=== PATIENT | male | born 1985 | race Caucasian/White ===

== ENCOUNTER 2016-02-28 18:52 | Emergency (ER) | payer OTHER ==
[~2016-02-28] VITALS: Ht 177.8 cm; Wt 108.7 kg
[2016-02-28 18:56] VITALS: BP 149/97; PULSE 81; RESP 16; TEMP 98.6; O2SAT 100
--- NOTE | 2016-02-28 20:10 | PD ---
HPI Chief Complaint: Skin Problem Time Seen by Provider: 20:03 Travel History International Travel<30 days: No Contact w/Intl Traveler<30days: No Traveled to known affect area: No History of Present Illness HPI 30-year-old male presents to the emergency room for evaluation of lesion to the left lateral back that he first noticed today. Patient states he had prodromal pain, like muscle spasms, in the area yesterday. Has history of shingles 10 months ago and states the pain feels the same. Patient has had chickenpox as a child. Denies fever, chills, nausea, vomiting, and malaise. PFSH Social History Alcohol Use: No Tobacco Use: No Substance Use: No Allergies-Medications (Allergen,Severity, Reaction): Coded Allergies: Pertussis Vaccine (Verified Allergy, Severe, 02/28/16) Reported Meds & Prescriptions Reported Meds & Active Scripts Active No Active Prescriptions or Reported Medications Review of Systems Except as stated in HPI: all other systems reviewed are Neg Physical Exam Narrative GENERAL: Well-nourished, well-developed male in no acute distress. Afebrile. Ambulatory. SKIN: Warm and dry. There is a single 2 mm intact, nonerythematous vesicle on the left lateral back at the T8 distribution. HEAD: Normocephalic. EYES: No scleral icterus. No injection or drainage. NECK: Supple, trachea midline. No JVD or lymphadenopathy. Data Data Last Documented VS Vital Signs Date Time Temp Pulse Resp B/P Pulse Ox O2 Delivery O2 Flow Rate FiO2 02/28/16 18:56 98.6 81 16 149/97 100 MDM Medical Decision Making Medical Screen Exam Complete: Yes Emergency Medical Condition: Yes Medical Record Reviewed: Yes Differential Diagnosis Nevus versus shingles versus contact dermatitis Narrative Course 30-year-old male presents to the emergency room for evaluation of painful rash to the left lateral back that started via patient reports history of shingles 10 months ago and states this feels the same. Reports prodromal muscle spasm/ back pain in the T8 distribution that started yesterday. Denies systemic signs of infection. He is resting comfortably in bed. Physical exam reveals a single 2 mm intact, nonerythematous vesicle on the left lateral back at the T8 distribution. Very unimpressive for shingles. Patient has been under a lot of stress lately. Given history, he will be treated for shingles though it is a very mild case. Patient was told to follow up with a primary care physician or return to the emergency room for worsening symptoms. He understands and agrees to this plan. Diagnosis Primary Impression: History of shingles Referrals: Primary Care Physician Patient Instructions: General Instructions, Shingles (ED) Additional Instructions: Rest and drink plenty of fluids. Acyclovir as directed, until gone. Follow-up with a primary care physician. Return to the emergency room for worsening symptoms. Med/Other Pt SpecificInfo: Prescription(s) given Scripts No Active Prescriptions or Reported Meds Disposition: 01 DISCHARGE HOME Condition: Stable Charu Borjas Feb 28, 2016 20:10
[2016-02-28] MEDS ORDERED: ACYC800T PO (20:11)
== END 2016-02-28 20:17 | disposition home or self-care (01) ==
LOC: PHED 18:52 → PHEFT 20:17
DX: B02.9 Zoster without complications (principal)
CPT/HCPCS: 99283

== ENCOUNTER 2016-03-19 17:51 | Emergency (ER) | payer OTHER ==
[~2016-03-19] VITALS: Ht 175.3 cm; Wt 104.5 kg
[~2016-03-19 17:51] MED LIST: ACYC800T PO
[2016-03-19 17:57] VITALS: BP 165/106; PULSE 123; RESP 14; TEMP 98.1; O2SAT 98
--- NOTE | 2016-03-19 19:36 | PD ---
HPI Chief Complaint: Cold / Flu Symptoms Time Seen by Provider: 19:32 Travel History International Travel<30 days: No Contact w/Intl Traveler<30days: No Traveled to known affect area: No History of Present Illness HPI 30-year-old white male presents to emergency department with complaints of a concern for an esophageal foreign body versus stenosis. He states that in the last 2 weeks he has had noticeable decreased ability to swallow solid foods. He states now in the last 2 days he has not been able to eat any solid foods and has only been drinking liquids. He's been eating applesauce. He works here at the hospital. He spoke with Dr. Martinez to who agreed to see him in the office. She advised him to come to the ER if he had worsening symptoms. They had discussed getting an outpatient barium swallow followed by a upper endoscopy. He has had no fever chills. He does state that he has occasional coughing when eating or drinking. He denies any nausea or vomiting. No abdominal pain or diarrhea. No urinary symptoms. History of asthma as a child. None currently. 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 Nontoxic appearing. HEAD: Normocephalic, atraumatic. EYES: Pupils equal round and reactive. Extraocular motions intact. No scleral icterus. No injection or drainage. ENT: TMs clear without erythema. The external auditory canals clear. Nose: clear . Posterior pharynx is pink and moist. No tonsillar edema or exudate. A few cryptic tonsils. Uvula midline. Patient has a piece of tissue hanging from the uvula. Airway patent. NECK: Trachea midline.Supple, nontender, moves head freely. No central bony tenderness or spasm. CARDIOVASCULAR: Regular rate and rhythm without murmurs, gallops, or rubs. RESPIRATORY: Clear to auscultation. Breath sounds equal bilaterally. No wheezes , rales, or rhonchi. GASTROINTESTINAL: Abdomen soft, non-tender, nondistended. No hepato-splenomegaly , or palpable masses. No guarding. EXTREMITIES: No clubbing, cyanosis, or edema. No joint tenderness, effusion, or edema noted. BACK: Nontender without deformity or crepitance. No flank tenderness. Data Data Last Documented VS Vital Signs Date Time Temp Pulse Resp B/P Pulse Ox O2 Delivery O2 Flow Rate FiO2 03/19/16 17:57 98.1 123 14 165/106 98 Room Air Orders Barium Swallow (03/19/16 ) MDM Medical Decision Making Medical Screen Exam Complete: Yes Emergency Medical Condition: Yes Medical Record Reviewed: Yes Interpretation(s) Last 24 hours Impressions Barium Swallow X-Ray 03/19/16 0000 Signed Impressions: Service Date/Time: Saturday, March 19, 2016 19:20 - CONCLUSION: Normal examination. Jacob Valderrama MD Differential Diagnosis Differential diagnoses: Esophageal foreign body, esophageal stricture, nutcracker esophagus, motility problem of the esophagus, asthma, reflux Narrative Course Barium swallow is negative. Patient will be placed on a trial of Protonix 40 mg daily. He will continue to follow-up with Dr. Coello to have an upper endoscopy. This is esophageal foreign body sensation, dysphasia Diagnosis Primary Impression: esophageal foreign body sensation Additional Impression: Dysphagia Qualified Code: R13.12 - Oropharyngeal dysphagia Patient Instructions: General Instructions Additional Instructions: Rest. Protonix. Follow-up with GI doctor. Call in the morning for an appointment. Return to the ER if any problems. Med/Other Pt SpecificInfo: Prescription(s) given Scripts Pantoprazole (Protonix)40 Mg Tab40 Mg PO DAILY #30 TAB Ref 0 Prov:Daniela Adhikari DO 03/19/16 Disposition: 01 DISCHARGE HOME Condition: Stable Sammy Maher Mar 19, 2016 19:36
--- NOTE | 2016-03-19 20:12 | RADRPT ---
EXAM DATE/TIME: 03/19/2016 19:20 [facility] COMPARISON: No previous studies available for comparison. INDICATIONS : Dysphagia when swallowing solids, possible obstrction. FLUORO TIME: 0.9 minutes IMAGE COUNT: CONTRAST: 1. Liquid E-Z Paque Barium Sulfate (60% w/v, 41% w.w) MEDICAL HISTORY : asthma. SURGICAL HISTORY : None. ENCOUNTER: Initial ACUITY: 2 weeks PAIN SCORE: 2/10 LOCATION: esophagus. FINDINGS: Air-contrast views of the hypopharynx demonstrate a normal mucosal surface without filling defect. R apid sequence images of the hypopharynx and cervical esophagus during the passage of barium demonstra te a normal swallowing function. No evidence of aspiration. Multiphasic examination of the esophagu s demonstrates no esophageal fold thickening, ulceration, or filling defect. The gastroesophageal ju nction is normal in configuration without evidence of hiatal hernia. CONCLUSION: Normal examination. Jacob Valderrama MD on March 19, 2016 at 20:08 Board Certified Radiologist. This report was verified electronically.
[2016-03-19] MEDS ORDERED: PROT40TA PO (20:45)
== END 2016-03-19 21:04 | disposition home or self-care (01) ==
LOC: NEPB 17:51
DX: R13.12 Dysphagia, oropharyngeal phase (principal)
CPT/HCPCS: 74230; 99283

== ENCOUNTER 2016-03-22 09:02 | Day surgery (SDC) | payer OTHER ==
[~2016-03-22] VITALS: Ht 175.3 cm; Wt 105.0 kg
[~2016-03-22 09:02] MED LIST changes: -ACYC800T PO; +PROT40TA PO
[2016-03-22 09:04] VITALS: BP 144/78; PULSE 90; RESP 18; TEMP 97.8; O2SAT 97
--- NOTE | 2016-03-22 09:51 | PD ---
HPI Chief Complaint: Foreign Body Time Seen by Provider: 09:40 Travel History International Travel<30 days: No Contact w/Intl Traveler<30days: No Traveled to known affect area: No History of Present Illness HPI The patient is a 30-year-old male who presents emergency department for difficulty swallowing. The patient notes a 2 week history of difficulty and pain with swallowing with esophageal foreign body sensation. The patient had a barium swallow performed several days ago which was unremarkable. He was then seen in the elastic tape inserter office by Dr. Johnson's nurse practitioner, was scheduled for an endoscopy the following day. The endoscopy was scheduled for yesterday, however, the patient states he was unable to obtain a ride to have the endoscopy performed, therefore, it was not performed. The patient notes a 5 pound weight loss over the last 2 weeks, is able to swallow liquids with difficulty and with pain, but is unable to tolerate solid food. The symptoms are moderate, there are no alleviating factors, no known exacerbating factors. PFSH Past Medical History Immunizations Current: Yes Social History Alcohol Use: No Tobacco Use: No Substance Use: No Allergies-Medications (Allergen,Severity, Reaction): Coded Allergies: Pertussis Vaccine (Verified Allergy, Severe, 03/19/16) Reported Meds & Prescriptions Reported Meds & Active Scripts Active Protonix (Pantoprazole Sodium) 40 Mg Tab 40 Mg PO DAILY Review of Systems Except as stated in HPI: all other systems reviewed are Neg General / Constitutional: No: Fever Cardiovascular: No: Chest Pain or Discomfort Respiratory: No: Shortness of Breath Gastrointestinal: Positive: Dysphagia Neurologic: No: Weakness, Dizziness Physical Exam Narrative GENERAL: Awake, alert, nontoxic-appearing 30-year-old male who appears his stated age and is in no acute respiratory distress. SKIN: Warm and dry. HEAD: Atraumatic. Normocephalic. EYES: Pupils equal and round. No scleral icterus. No injection or drainage. ENT: No nasal bleeding or discharge. Long uvula. NECK: Trachea midline. No JVD. CARDIOVASCULAR: Regular rate and rhythm. No murmur appreciated. Heart rate in the 90s. RESPIRATORY: No accessory muscle use. Clear to auscultation. Breath sounds equal bilaterally. MUSCULOSKELETAL: No obvious deformities. No clubbing. No cyanosis. No edema. NEUROLOGICAL: Awake and alert. No obvious cranial nerve deficits. Motor grossly within normal limits. Normal speech. PSYCHIATRIC: Appropriate mood and affect; insight and judgment normal. Data Data Last Documented VS Vital Signs Date Time Temp Pulse Resp B/P Pulse Ox O2 Delivery O2 Flow Rate FiO2 03/22/16 09:04 97.8 90 18 144/78 97 Room Air Orders Complete Blood Count With Diff (03/22/16 09:51) Basic Metabolic Panel (Bmp) (03/22/16 09:51) Sodium Chlor 0.9% 1000 Ml Inj (Ns 1000 M (03/22/16 10:00) Ct Soft Tiss Neck W Iv Cont (03/22/16 ) Act Partial Throm Time (Ptt) (03/22/16 10:00) Prothrombin Time / Inr (Pt) (03/22/16 10:00) ^ Consent (03/22/16 10:04) Admit Order (Ed Use Only) (03/22/16 10:24) Labs Laboratory Tests Test 03/22/16 10:20 White Blood Count 7.5 TH/MM3 Red Blood Count 5.38 MIL/MM3 Hemoglobin 15.9 GM/DL Hematocrit 46.5 % Mean Corpuscular Volume 86.3 FL Mean Corpuscular Hemoglobin 29.5 PG Mean Corpuscular Hemoglobin 34.2 % Concent Red Cell Distribution Width 13.1 % Platelet Count 286 TH/MM3 Mean Platelet Volume 7.7 FL Neutrophils (%) (Auto) 60.3 % Lymphocytes (%) (Auto) 27.4 % Monocytes (%) (Auto) 10.8 % Eosinophils (%) (Auto) 1.2 % Basophils (%) (Auto) 0.3 % Neutrophils # (Auto) 4.5 TH/MM3 Lymphocytes # (Auto) 2.1 TH/MM3 Monocytes # (Auto) 0.8 TH/MM3 Eosinophils # (Auto) 0.1 TH/MM3 Basophils # (Auto) 0.0 TH/MM3 CBC Comment DIFF FINAL Differential Comment Prothrombin Time 11.2 SEC Prothromb Time International 1.0 RATIO Ratio Activated Partial 30.3 SEC Thromboplast Time Sodium Level 139 MEQ/L Potassium Level 3.6 MEQ/L Chloride Level 104 MEQ/L Carbon Dioxide Level 26.7 MEQ/L Anion Gap 8 MEQ/L Blood Urea Nitrogen 7 MG/DL Creatinine 1.06 MG/DL Estimat Glomerular Filtration 82 ML/MIN Rate Random Glucose 88 MG/DL Calcium Level 8.7 MG/DL MDM Medical Decision Making Medical Screen Exam Complete: Yes Emergency Medical Condition: Yes Medical Record Reviewed: Yes Interpretation(s) CT soft tissue neck reveals no acute disease. No evidence of radiopaque foreign body. Laboratory Tests Test 03/22/16 10:20 White Blood Count 7.5 TH/MM3 Red Blood Count 5.38 MIL/MM3 Hemoglobin 15.9 GM/DL Hematocrit 46.5 % Mean Corpuscular Volume 86.3 FL Mean Corpuscular Hemoglobin 29.5 PG Mean Corpuscular Hemoglobin 34.2 % Concent Red Cell Distribution Width 13.1 % Platelet Count 286 TH/MM3 Mean Platelet Volume 7.7 FL Neutrophils (%) (Auto) 60.3 % Lymphocytes (%) (Auto) 27.4 % Monocytes (%) (Auto) 10.8 % Eosinophils (%) (Auto) 1.2 % Basophils (%) (Auto) 0.3 % Neutrophils # (Auto) 4.5 TH/MM3 Lymphocytes # (Auto) 2.1 TH/MM3 Monocytes # (Auto) 0.8 TH/MM3 Eosinophils # (Auto) 0.1 TH/MM3 Basophils # (Auto) 0.0 TH/MM3 CBC Comment DIFF FINAL Differential Comment Prothrombin Time 11.2 SEC Prothromb Time International 1.0 RATIO Ratio Activated Partial 30.3 SEC Thromboplast Time Sodium Level 139 MEQ/L Potassium Level 3.6 MEQ/L Chloride Level 104 MEQ/L Carbon Dioxide Level 26.7 MEQ/L Anion Gap 8 MEQ/L Blood Urea Nitrogen 7 MG/DL Creatinine 1.06 MG/DL Estimat Glomerular Filtration 82 ML/MIN Rate Random Glucose 88 MG/DL Calcium Level 8.7 MG/DL Differential Diagnosis Differential diagnosis includes esophageal motility disorder, oropharyngeal mass , esophageal stricture, esophageal stenosis, globulus, GERD, Schatzki ring. Narrative Course I reviewed the patient's EMR, he was seen several days ago by DAYAMI Marcos. The patient had a barium swallow at that time which was normal. The patient did have an endoscopy scheduled for yesterday, however, states he is unable to obtain a ride to the endoscopy, therefore, did not have it performed. The elastic tape inserter that was going to perform the procedure was Dr. Larry, therefore, Dr. Larry car was paged at 9:50 AM. IV was established , labs are drawn and sent, and the patient was provided 1 L bolus. I discussed the patient with Drs. Larry at 9:50 AM, the patient will be kept nothing by mouth, and possibly will be placed on the schedule for EGD later today. The patient states he will be able to take a cab or Uber home. CT soft tissue neck with contrast is negative. Patient will have endoscopy and be discharged home. Diagnosis Primary Impression: Dysphagia Qualified Code: R13.10 - Dysphagia, unspecified type Admitting Information Admitting Physician Requests: Observation Patient Instructions: General Instructions Condition: Stable Vivek Judge MD Mar 22, 2016 09:51
[2016-03-22] MEDS ORDERED: SODIUM CHLOR 0.9% 1000 ML INJ 1,000 ML IV ONE (10:00)
[2016-03-22 10:31] LABS: AUTOMATED NEUTROPHIL # 4.5 TH/MM3 (1.8-7.7); BASOPHIL % 0.3 % (0.0-2.0); EOSINOPHIL # 0.1 TH/MM3 (0-0.4); EOSINOPHIL % 1.2 % (0.0-4.0); HEMATOCRIT 46.5 % (39.0-51.0); HEMO FLAGS DIFF FINAL; LYMPH % 27.4 % (9.0-44.0); LYMPHOCYTE # 2.1 TH/MM3 (1.0-4.8); MEAN CELL VOLUME 86.3 FL (80.0-100.0); MEAN CORPUSCULAR HEMOGLOBIN 29.5 PG (27.0-34.0); MEAN CORPUSCULAR HGB CONC 34.2 % (32.0-36.0); MONO % 10.8 % (0.0-8.0); NEUT % 60.3 % (16.0-70.0); PLATELET COUNT 286 TH/MM3 (150-450); RED BLOOD COUNT 5.38 MIL/MM3 (4.50-5.90); RED CELL DISTRIBUTION WIDTH 13.1 % (11.6-17.2); WHITE BLOOD COUNT 7.5 TH/MM3 (4.0-11.0)
[2016-03-22 10:39] LABS: APTT (PATIENT) 30.3 SEC (24.3-30.1); PROTHROMBIN TIME - PATIENT 11.2 SEC (9.8-11.6)
[2016-03-22] MEDS ORDERED: IOHEXOL 350 MG/ML 10 ML VIAL (for RAD DIAG) IV ONE (10:39)
[2016-03-22 10:45] LABS: BICARBONATE 26.7 MEQ/L (21.0-32.0); POTASSIUM 3.6 MEQ/L (3.5-5.1)
--- NOTE | 2016-03-22 11:30 | RADRPT ---
EXAM DATE/TIME: 03/22/2016 10:37 [facility] COMPARISON: No previous studies available for comparison. INDICATIONS : Foreign body sensation with swallowing x 2 weeks. IV CONTRAST: 70 cc Omnipaque 350 (iohexol) IV RADIATION DOSE: 20.70 CTDIvol (mGy) MEDICAL HISTORY : None SURGICAL HISTORY : None. ENCOUNTER: Initial ACUITY: 2 weeks PAIN SCALE: 1/10 LOCATION: neck TECHNIQUE: Volumetric scanning of the neck was performed. Using automated exposure control and adjustment of th e mA and/or kV according to patient size, radiation dose was kept as low as reasonably achievable to obtain optimal diagnostic quality images. FINDINGS: NASOPHARYNX: The nasopharyngeal airway has a normal configuration. No mucosal thickening or mass is seen. OROPHARYNX: The intrinsic muscles of the tongue are symmetric. The tonsillar pillars are intact. The prevertebr al soft tissues are not thickened. LARYNX: The supraglottic, glottic, and infraglottic structures are intact. PARAPHARYNGEAL: The parapharyngeal space is intact. SALIVARY GLANDS: The parotid and submandibular glands are intact. LYMPH NODES: No enlarged or necrotic-appearing nodes. THYROID: Homogeneous enhancement without evidence of nodule. BONES: Unremarkable. CONCLUSION: No acute disease. No evidence of radiopaque foreign body. Chase Hutson MD on March 22, 2016 at 11:27 Board Certified Radiologist. This report was verified electronically.
[2016-03-22] MEDS ORDERED: PROPOFOL 200 MG/20 ML AMP IV ONE (11:57)
--- NOTE | 2016-03-22 12:03 | MB ---
cc: CAPO CHILD M.D., ANTHONY A. MD DATE OF CONSULTATION: 03/22/2016 REFERRING PHYSICIAN: Dr. Renteria REASON FOR CONSULTATION: Dysphagia, weight loss. HISTORY OF PRESENT ILLNESS Mr. Mcintyre is a 30-year-old gentleman who says about 3 weeks he has been having progressive increase in difficulty with swallowing. He says he is down to a liquid diet at this time. He states he had recently had a barium swallow study done which showed normal exam up to the GE junction. He says his lungs have gotten acutely worse. He was scheduled for an outpatient endoscopy but he could not get a ride to go for his procedure so he presented back to the emergency room and GI has been consulted for further recommendations. PAST MEDICAL HISTORY None given. SOCIAL HISTORY No tobacco, alcohol. PAST SURGICAL HISTORY None. MEDICATIONS On admission Protonix 40 mg daily. REVIEW OF SYSTEMS No shortness of breath. No chest pain. No abdominal pain at this time. PHYSICAL EXAMINATION: IN GENERAL: A physical examination reveals a well-nourished man in no apparent distress. VITAL SIGNS: Stable. HEAD/NECK: The head and neck examination anicteric sclerae. CHEST: Bilateral air entry with rales. ABDOMEN: Abdomen is soft, nontender. No hepatosplenomegaly. Bowel sounds are present. CENTRAL NERVOUS SYSTEM: Exam is normal. Exam nonfocal. RECTUM: Rectal examination is deferred at this time. LABORATORY FINDINGS: The labs revealed a hemoglobin of 15.9, creatinine 1.06. CT of the neck reveals no abnormalities. IMPRESSION Dysphagia, reflux disease. RECOMMENDATIONS 1. EGD planned for today. 2. Keep n.p.o. at this time. 3. Further recommendations to follow. MD ZAIDA Day/katie /11:49 AM 11:59 AM
[2016-03-22 12:20] VITALS: BP 136/69; PULSE 87; RESP 16; O2SAT 97
== END 2016-03-22 12:52 | disposition home or self-care (01) ==
LOC: NEPE 09:02 → NEDA 10:30 → NEPE 12:52
PROVIDERS: ATTEND Internal Medicine Gastroenterology
DX: R13.10 Dysphagia, unspecified (principal); K29.70 Gastritis, unspecified, without bleeding; K20.9 Esophagitis, unspecified; K31.9 Disease of stomach and duodenum, unspecified
CPT/HCPCS: 00740; 43248; 70491; 80048; 85025; 85610; 85730; 88305; 99285; C1769; J7030; Q9967

== ENCOUNTER 2016-09-16 00:32 | Emergency (ER) | payer OTHER ==
[~2016-09-16] VITALS: Ht 175.3 cm; Wt 98.5 kg
[2016-09-16 00:36] VITALS: BP 173/93; PULSE 72; RESP 16; TEMP 98.1; O2SAT 100
--- NOTE | 2016-09-16 01:32 | PD ---
HPI Chief Complaint: Musculoskeletal Complaint Time Seen by Provider: 01:21 Travel History International Travel<30 days: No Contact w/Intl Traveler<30days: No Traveled to known affect area: No History of Present Illness HPI The patient is a 30 year old male who presents to the [facility] emergency department with a history of left calf pain that began at approximately noon while driving back from [place]. The patient reports that he drove to [place] on Friday. He reports that the drive is a proximally 6-1/2 hours. He denies any personal history of blood clots, however he does have a family history of pulmonary embolisms and his mother, and a cousin also has a history of blood clots. He is unsure of whether they were diagnosed with a coagulopathy. He reports that an hour and a half prior to arrival he did try taking a Flexeril without any relief of the discomfort. He denies any injury to the area. He denies participating in any new exercise program. On review of systems, the patient denies any recent fevers, cough, congestion, neck pain, chest pain, shortness of breath, abdominal pain, vomiting, diarrhea, urinary symptoms, or neurologic symptoms. [facility] Past Medical History Narrative Medical The patient's past medical history is significant for allergies, adhd, Erlos Danlos syndrome, acid reflux. Immunizations Current: Yes Past Surgical History Narrative Surgical The Patient's past surgical history is significant for an adenoidectomy. Social History Alcohol Use: No Tobacco Use: No Substance Use: No Allergies-Medications (Allergen,Severity, Reaction): Coded Allergies: Pertussis Vaccine (Verified Allergy, Severe, 03/19/16) Reported Meds & Prescriptions Reported Meds & Active Scripts Active Protonix (Pantoprazole Sodium) 40 Mg Tab 40 Mg PO DAILY Review of Systems Except as stated in HPI: all other systems reviewed are Neg General / Constitutional: No: Fever Eyes: No: Visual changes HENT: No: Headaches Cardiovascular: No: Chest Pain or Discomfort Respiratory: No: Shortness of Breath Gastrointestinal: No: Abdominal Pain Genitourinary: No: Dysuria Musculoskeletal: Positive: Myalgias, Pain Skin: No Rash Neurologic: No: Weakness Psychiatric: No: Depression Endocrine: No: Polydipsia Hematologic/Lymphatic: No: Easy Bruising Physical Exam Narrative General: The patient is a well-developed well-nourished male in no acute distress. Head and Neck exam: Head is normocephalic atraumatic. Eyes: EOMI, pupils are equal round and reactive to light. Nose: Midline septum with pink mucous membranes Mouth: Dentition unremarkable. Moist mucus membranes. Posterior oropharynx is not erythematous. No tonsillar hypertrophy. Uvula midline. Airway patent. Neck: No palpable lymphadenopathy. No nuchal rigidity. No thyromegaly. Cardiovascular: Regular rate and rhythm without murmurs, gallops, or rubs. Lungs: Clear to auscultation bilaterally. No wheezes, rhonchi, or rales. Abdomen: Soft, without tenderness to palpation in all 4 quadrants of the abdomen. No guarding, rebound, or rigidity. Normal bowel sounds are audible. No tenderness on palpation of McBurney's point. Extremities: No clubbing, cyanosis, or edema. 2+ pulses in all 4 extremities. The patient reports having left-sided calf tenderness on palpation. The patient has a negative Homans sign. No palpable cords. No erythema or ecchymosis. Back: No spinous process tenderness to palpation. No costovertebral angle tenderness to palpation. Neurologic Exam: Grossly nonfocal. Skin Exam: No rash noted. Intact skin that is warm and dry. Data Data Last Documented VS Vital Signs Date Time Temp Pulse Resp B/P Pulse Ox O2 Delivery O2 Flow Rate FiO2 09/16/16 00:36 98.1 72 16 173/93 100 Room Air Orders Us Leg Venous Doppler (09/16/16 01:23) MDM Medical Decision Making Medical Screen Exam Complete: Yes Emergency Medical Condition: Yes Medical Record Reviewed: Yes Interpretation(s) Last Impressions Lower Extremity Ultrasound 09/16/16 0123 Signed Impressions: Service Date/Time: Friday, September 16, 2016 01:53 - CONCLUSION: Negative exam with no evidence of deep venous thrombosis. Toan Prescott MD Differential Diagnosis Musculoskeletal strain, versus DVT Narrative Course During the course of the patients emergency department visit, the patients history, examination, and differential diagnosis were reviewed with the patient. The patient had an ultrasound of the left lower extremity ordered. Radiology studies were reviewed and remarkable for an ultrasound that is negative for DVT. The patient is resting comfortably and feels better, is alert and in no distress. The patients results and examination findings were discussed with the patient. The repeat examination is unremarkable and benign. The history, exam, diagnostic testing, and current condition do not suggest any significant pathology to warrant further testing, continued ED treatment, admission, or surgical evaluation at this point. The vital signs have been stable. The patient does not have uncontrollable pain, intractable vomiting, or other significant symptoms. The patient's condition is stable and appropriate for discharge. The patient will pursue further outpatient evaluation with a primary care physician or other designated or consulting physician as indicated in the discharge instructions. The patient expressed understanding and was agreeable with this plan. Diagnosis Primary Impression: Left leg pain Referrals: Primary Care Physician 1 week Patient Instructions: General Instructions, Leg Pain (ED) Additional Instructions: Take Tylenol as needed for discomfort, as written on the package. Med/Other Pt SpecificInfo: No Change to Meds Disposition: 01 DISCHARGE HOME Condition: Stable Nasra Westbrook MD Sep 16, 2016 01:32
--- NOTE | 2016-09-16 02:27 | RADRPT ---
EXAM DATE/TIME: 09/16/2016 01:53 [facility] COMPARISON: No previous studies available for comparison. INDICATIONS : Left calf pain. MEDICAL HISTORY : Gastroesophageal reflux disease. Shingles. SURGICAL HISTORY : None. ENCOUNTER: Initial ACUITY: 1 day PAIN SCORE: 4/10 LOCATION: Left leg. TECHNIQUE: Venous ultrasound of the leg was performed from the inguinal ligament to the proximal calf. Real-thang e, color Doppler and spectral tracing, compression and augmentation techniques were used. FINDINGS: There is normal compressibility of the deep venous system from the inguinal region to the proximal ca lf. No echogenic clot is seen in the lumen of the common femoral, femoral, popliteal, and posterior tibial veins. There is a normal response of the venous system to proximal and distal augmentation an d respiration. CONCLUSION: Negative exam with no evidence of deep venous thrombosis. Toan Prescott MD on September 16, 2016 at 2:25 Board Certified Radiologist. This report was verified electronically.
[2016-09-16] MEDS ORDERED: ACETAMINOPHEN 325 MG TAB PO ONE (03:00)
== END 2016-09-16 03:00 | disposition home or self-care (01) ==
LOC: NEPE 00:32
DX: M79.662 Pain in left lower leg (principal)
CPT/HCPCS: 93971; 99284